=== PATIENT | female | born 1955 | race Caucasian/White ===

== ENCOUNTER 2019-12-26 22:41 | Emergency (ER) | payer OTHER ==
[~2019-12-26] VITALS: Ht 157.5 cm; Wt 66.7 kg
[2019-12-26 22:41] VITALS: BP_SYST 124
--- NOTE | 2019-12-26 23:00 | NUR ---
Patient to ER BED 2.
--- NOTE | 2019-12-26 23:09 | NUR ---
Patient is alert and oriented. Pt states she drank one bottle of wine and two pills of Ativan (unspecified dose). Patient states she did not plan on hurting herself, she does not have a plan to go home and hurt herself and currently does not want to hurt herself. Patient states, "If I did not wake up tomorrow that would be good but I do not have a plan to kill myself." Patient is in SI precautions.
--- NOTE | 2019-12-26 23:15 | NUR ---
ER MD YANEZ AT BEDSIDE EXAMINING PATIENT.
--- NOTE | 2019-12-26 23:30 | NUR ---
Patient sleeping in bed. VSS. No signs of acute distress noted. Will continue to monitor.
--- NOTE | 2019-12-26 23:45 | NUR ---
Patient sleeping in bed. VSS. No signs of acute distress noted. Will continue to monitor.
[2019-12-26 23:56] LABS: BASOPHILS # (AUTO) 0.1 K/uL (0.0-0.2); BASOPHILS % (AUTO) 0.8 % (0.0-2.0); EOSINOPHILS # (AUTO) 0.1 K/uL (0.0-0.4); EOSINOPHILS % (AUTO) 1.4 % (0.0-4.0); HEMOGLOBIN 14.7 g/dL (12.0-16.0); LYMPHOCYTES # (AUTO) 2.9 K/uL (1.0-5.5); LYMPHOCYTES % (AUTO) 34.5 % (20.5-51.5); MEAN CORPUSCULAR HEMOGLOBIN 31 pg (27-31); MEAN CORPUSCULAR HGB CONC 34 % (32-36); MEAN CORPUSCULAR VOLUME 91 fL (79.0-98.0); MONOCYTES # (AUTO) 0.6 K/uL (0.0-1.0); MONOCYTES % (AUTO) 7.2 % (1.7-9.3); NEUTROPHILS # (AUTO) 4.7 K/uL (1.8-7.7); NEUTROPHILS % (AUTO) 56.1 % (40.0-70.0); PLATELET COUNT (AUTO) 232 K/uL (130-430); RED BLOOD CELL COUNT(AUTO) 4.73 MIL/uL (4.2-6.2); RED CELL DISTRIBUTION WIDTH 14.3 % (9.0-15.0); WHITE BLOOD COUNT (AUTO) 8.4 K/uL (4.8-10.8)
--- NOTE | 2019-12-27 | NUR ---
Patient sleeping in bed. VSS. No signs of acute distress noted. Will continue to monitor.
--- NOTE | 2019-12-27 00:15 | NUR ---
Patient sleeping in bed. VSS. No signs of acute distress noted. Will continue to monitor.
[2019-12-27 00:18] LABS: CALCIUM 8.1 mg/dL (8.4-11.0); CREATININE 0.58 mg/dL (0.55-1.30); POTASSIUM 3.5 mmol/L (3.5-5.1)
[2019-12-27 00:24] LABS: ALBUMIN 3.5 g/dL (3.4-4.8); TOTAL BILIRUBIN 0.3 mg/dL (0.0-1.0)
[2019-12-27 00:27] LABS: ACETAMINOPHEN < 1 ug/mL (1-30)
[2019-12-27 00:29] LABS: BARBITURATE, URINE NEGATIVE (NEG <=200); BENZODIAZEPINE, URINE NEGATIVE (NEG <=150); CANNABINOID, URINE NEGATIVE (NEG <=50); COCAINE, URINE NEGATIVE (NEG <=150); METHAMPHETAMINES SCREEN,URINE NEGATIVE (NEG <=500); OPIATE, URINE NEGATIVE (NEG <=100); PHENCYCLIDINE SCREEN,URINE NEGATIVE (NEG <=25); UR TRICYCLIC ANTIDEPRESSANTS NEGATIVE (NEG <=300); URINE AMPHETAMINE NEGATIVE (NEG <=500); URINE METHADONE NEGATIVE (NEG <=200); URINE OXYCODONE SCREEN NEGATIVE (NEG <=100); URINE PROPOXYPHENE SCREEN NEGATIVE (NEG <=300)
--- NOTE | 2019-12-27 00:30 | NUR ---
Patient sleeping in bed. VSS. No signs of acute distress noted. Will continue to monitor.
--- NOTE | 2019-12-27 00:45 | NUR ---
Patient sleeping in bed. VSS. No signs of acute distress noted. Will continue to monitor.
--- NOTE | 2019-12-27 01:00 | NUR ---
Patient sleeping in bed. VSS. No signs of acute distress noted. Will continue to monitor.
--- NOTE | 2019-12-27 01:15 | NUR ---
Patient sleeping in bed. VSS. No signs of acute distress noted. Will continue to monitor.
--- NOTE | 2019-12-27 01:30 | NUR ---
Patient sleeping in bed. VSS. No signs of acute distress noted. Will continue to monitor.
--- NOTE | 2019-12-27 01:45 | NUR ---
Patient sleeping in bed. VSS. No signs of acute distress noted. Will continue to monitor.
--- NOTE | 2019-12-27 02:00 | NUR ---
Patient sleeping in bed. VSS. No signs of acute distress noted. Will continue to monitor.
--- NOTE | 2019-12-27 02:15 | NUR ---
Patient sleeping in bed. VSS. No signs of acute distress noted. Will continue to monitor.
--- NOTE | 2019-12-27 02:30 | NUR ---
Patient sleeping in bed. VSS. No signs of acute distress noted. Will continue to monitor.
--- NOTE | 2019-12-27 02:45 | NUR ---
Patient sleeping in bed. VSS. No signs of acute distress noted. Will continue to monitor.
--- NOTE | 2019-12-27 03:00 | NUR ---
Patient sleeping in bed. VSS. No signs of acute distress noted. Will continue to monitor.
--- NOTE | 2019-12-27 03:15 | NUR ---
Patient sleeping in bed. VSS. No signs of acute distress noted. Will continue to monitor.
--- NOTE | 2019-12-27 03:30 | NUR ---
Patient sleeping in bed. VSS. No signs of acute distress noted. Will continue to monitor.
--- NOTE | 2019-12-27 03:45 | NUR ---
Patient sleeping in bed. VSS. No signs of acute distress noted. Will continue to monitor.
--- NOTE | 2019-12-27 04:00 | NUR ---
Patient sleeping in bed. VSS. No signs of acute distress noted. Will continue to monitor.
--- NOTE | 2019-12-27 04:15 | NUR ---
Patient speaking to MD via TELEMED.
--- NOTE | 2019-12-27 04:30 | NUR ---
Patient awake in bed. VSS. No signs of acute distress noted. Will continue to monitor.
--- NOTE | 2019-12-27 04:30 | NUR ---
Note dahiana in EDM - 12/27/19 at 0656 by [email or web address] Patient sleeping in bed. VSS. No signs of acute distress noted. Will continue to monitor.
--- NOTE | 2019-12-27 04:45 | NUR ---
Patient sleeping in bed. VSS. No signs of acute distress noted. Will continue to monitor.
--- NOTE | 2019-12-27 05:00 | NUR ---
Patient sleeping in bed. VSS. No signs of acute distress noted. Will continue to monitor.
--- NOTE | 2019-12-27 05:15 | NUR ---
Patient sleeping in bed. VSS. No signs of acute distress noted. Will continue to monitor.
--- NOTE | 2019-12-27 05:30 | NUR ---
Patient sleeping in bed. VSS. No signs of acute distress noted. Will continue to monitor.
--- NOTE | 2019-12-27 05:45 | NUR ---
Patient sleeping in bed. VSS. No signs of acute distress noted. Will continue to monitor.
--- NOTE | 2019-12-27 06:00 | NUR ---
Patient sleeping in bed. VSS. No signs of acute distress noted. Will continue to monitor.
--- NOTE | 2019-12-27 06:15 | NUR ---
Patient awake in bed. VSS. No signs of acute distress noted. Will continue to monitor.
--- NOTE | 2019-12-27 06:30 | NUR ---
Patient awake in bed. VSS. No signs of acute distress noted. Will continue to monitor.
--- NOTE | 2019-12-27 06:45 | NUR ---
Patient awake in bed. VSS. No signs of acute distress noted. Will continue to monitor.
--- NOTE | 2019-12-27 07:00 | NUR ---
Patient awake in bed. VSS. No signs of acute distress noted. Will continue to monitor.
--- NOTE | 2019-12-27 07:05 | NUR ---
Patient care endorsed to diamond KAUFMAN.
--- NOTE | 2019-12-27 07:27 | NUR ---
ER at bedside examining patient.
--- NOTE | 2019-12-27 08:30 | NUR ---
pt moved from ER 2 to ER 5.
--- NOTE | 2019-12-27 09:59 | NUR ---
Spoke with Corey from [facility] [phone]. Facility has received pt's info. Currently waiting for insurance verification and bed assignment
--- NOTE | 2019-12-27 11:32 | NUR ---
Reid w/ Chuy from [facility]. pt will be going to room 53-a under the care of Dr. Henderson and Dr. Ledbetter
--- NOTE | 2019-12-27 11:55 | NUR ---
Pt resting in [facility] comfortably at this time vss
--- NOTE | 2019-12-27 12:27 | NUR ---
TRANSFER INFO [facility] Ledbetter/Dr. Gomez Rm: [id number]
--- NOTE | 2019-12-27 12:27 | NUR ---
Called [facility] to give report, nurse unavailable at this time. [employer] stated they would need 20min.
--- NOTE | 2019-12-27 13:11 | NUR ---
Patient to be transferred to [facility]. Is being transferred due to higher level of care. Receiving facility has accepting physician and available space. ER physician has signed transfer form. Patient or responsible constitution party has agreed to transfer and signed form. Patient belongings inventoried and will be sent with patient. Copy of nursing notes, lab reports, EKG, Physicians Orders and X-rays to be sent with patient. Report called to Danitza at receiving facility. Receiving physician is Dr. Henderson. [facility] called for transfer.
[2019-12-27 13:14] VITALS: BP_SYST 110
== END 2019-12-27 13:11 ==
LOC: SED 22:41
DX: F41.9 Anxiety disorder, unspecified (principal); F32.9 Major depressive disorder, single episode, unspecified; R45.851 Suicidal ideations; E78.5 Hyperlipidemia, unspecified; Z88.6 Allergy status to analgesic agent; Z88.2 Allergy status to sulfonamides; Z20.828 Contact with and (suspected) exposure to other viral communicable diseases
CPT/HCPCS: 36415; 80053; 80307; 82140; 85025; 87081; 87426; 99285; G0480; G0481; G0482